=== PATIENT | male | born 1995 | race Caucasian/White ===

== ENCOUNTER 2020-01-06 16:06 | Emergency (ER) | payer SELFPAY ==
[2020-01-06] VITALS (14 sets, daily range): BP systolic 119–181; BP diastolic 72–168; PULSE 56–78; RESP 9–20; TEMP 36.6; O2SAT 98–100
--- NOTE | ~2020-01-06 | XR_ITS ---
EXAMINATION: XR chest 2V EXAM DATE: 01/06/2020 17:52 INDICATION: Shortness of breath, chest tightness. TECHNIQUE: Frontal and lateral projections of the chest obtained and reviewed. There is no prior dragan dy for comparison. FINDINGS: The lungs are clear. There are no pleural effusions. The cardiomediastinal silhouette is within normal limits. There is no pneumothorax suspected. The bones and soft tissues are unremarkab le. IMPRESSION: Normal chest x-ray exam. Reviewed, dictated and finalized at location A. IMPRESSION: Normal chest x-ray exam.
--- NOTE | 2020-01-06 16:13 | ECG_ITS ---
Measurements Intervals [place] Rate: 73 P: 54 VA: 151 QRS: 73 QRSD: 96 T: 10 QT: 376 QTc: 417 Interpretive Statements SINUS RHYTHM NORMAL ECG Electronically Signed On 01-07-2020 6:55:12 CDT by Jaciel Calero D.O.
[2020-01-06 16:41] LABS: Basophils Absolute Auto 0.1 K/mm3 (0.0-0.1); Basophils Percent Auto 1.1 % (0.2-1.2); Eosinophils Absolute Auto 0.1 K/mm3 (0-0.3); Eosinophils Percent Auto 1.5 % (0-4.4); Hematocrit 46.4 % (42.0-52.0); Hemoglobin 16.4 g/dL (14.0-18.0); Immature Granulocyte Absolute 0.02 K/mm3 (0.00-0.031); Immature Granulocyte Percent A 0.2 % (0-0.5); Lymphocytes Absolute Auto 2.29 K/mm3 (0.9-3.2); Lymphocytes Percent Auto 25.8 % (18.3-44.2); Mean Corpuscular HGB Conc 35.3 g/dl (32-36); Mean Corpuscular Hemoglobin 31.4 pg (26-34); Mean Corpuscular Volume 88.7 fl (80-100); Mean Platelet Volume 12.5 fl (7.4-10.4); Monocytes Absolute Auto 0.9 K/mm3 (0.1-0.6); Monocytes Percent Auto 9.8 % (2.6-8.5); Neutrophils Absolute Auto 5.5 K/mm3 (1.3-6.7); Neutrophils Percent Auto 61.6 % (45.5-73.1); Platelet Count Result 178 k/mm3 (150-375); Red Blood Count 5.23 M/mm3 (4.6-6.20); Red Cell Distribution Width 11.9 % (11.5-14.5); White Blood Count 8.9 K/mm3 (4.5-10.0)
--- NOTE | 2020-01-06 16:45 | ED.GENADULT ---
HPI - General Adult General Chief complaint: Shortness of Breath/Dyspnea Stated complaint: SOB, CHEST TIGHTNESS - RIGHT SIDED Time Seen by Provider: 01/06/20 16:20 Source: patient and family Limitations: no limitations History of Present Illness HPI narrative: 24 years old white male, then off work for over 8 months, history of post traumatic stress syndrome and anxiety, presents with right chest tightness, intermittent chest pain, lightheadedness, nausea for the last few weeks, worse over the last 6 days. Patient smokes weed, denied alcohol use. Patient denied any suicidal or homicidal ideation Related Data Allergies Allergy/AdvReac Type Severity Reaction Status Date / Time No Known Allergies Allergy Verified 01/06/20 16:12 Review of Systems Review of Systems: Narrative: CONSTITUTIONAL: Denies fever, chills, or sweats. EYES: Denies visual changes, redness, or discharge. ENT: Denies rhinorrhea, congestion, sore throat, or otalgia. CARDIOVASCULAR: Denies chest pain, palpitations, or edema. RESPIRATORY: Denies cough or dyspnea. GASTROINTESTINAL: Denies abdominal pain, nausea, vomiting, or diarrhea. GENITOURINARY: Denies dysuria or hematuria. SKIN: Denies rash or itching. MUSCULOSKELETAL: Denies back pain, joint pain, or myalgia. NEUROLOGIC: Denies headache, numbness, or weakness. PSYCHIATRIC: Denies anxiety or depression. PMFSH Social History Social History Gender identity (if verbalized by the patient): Male Exam Narrative: Exam Narrative: General appearance: Well-developed, well-nourished Skin: Normal color Head: Normocephalic, nontraumatic Eyes: Clear conjunctiva ENT: Oropharynx normal, ears normal, nose normal Neck: Supple, nontender Chest and respiratory: Airway patent, no respiratory distress, no accessory muscle use Heart: Regular rate/rhythm Abdomen: Soft, nontender, no organomegaly, quiet bowel sounds Vascular: Normal peripheral pulses, normal capillary refill. Musculoskeletal: Normal range of motion, nontender back Neurologic: Alert and oriented ?3, FINANCE CLERK is normal as tested, no gross motor deficit Course Course Emergency Course: Unchanged Vital Signs Vital signs: Vital Signs Temperature 36.6 C 01/06/20 16:10 Pulse Rate 76 01/06/20 16:10 Respiratory Rate 16 01/06/20 16:10 Blood Pressure 138/80 01/06/20 16:10 Pulse Oximetry 99 01/06/20 16:10 Temperature 36.6 C 01/06/20 16:10 Pulse Rate 57 L 01/06/20 17:01 Respiratory Rate 13 01/06/20 17:01 Blood Pressure 133/79 01/06/20 17:01 Pulse Oximetry 98 01/06/20 17:01 Medical Decision Making MDM Narrative Medical decision making narrative: Stress, anxiety is my concern. Patient does not have a job for months. Lives with his mom, history of posttraumatic stress syndrome. My plan to get labs, urine drug screen, chest x-ray. Further plan to follow Differential Diagnosis Differential Diagnosis: Stress, anxiety and drug use Vital Signs Vital Signs: Vital Signs Temperature 36.6 C 01/06/20 16:10 Pulse Rate 76 01/06/20 16:10 Respiratory Rate 16 01/06/20 16:10 Blood Pressure 138/80 01/06/20 16:10 Pulse Oximetry 99 01/06/20 16:10 Temperature 36.6 C 01/06/20 16:10 Pulse Rate 57 L 01/06/20 17:01 Respiratory Rate 13 01/06/20 17:01 Blood Pressure 133/79 01/06/20 17:01 Pulse Oximetry 98 01/06/20 17:01 Lab Data Result diagrams: 01/06/20 16:33 01/06/20 16:33 Labs: Lab Results 01/06/20 01/06/20 01/06/20 Range/Units 16:33 16:33 17:30 WBC 8.9 (4.5-10.0) K/mm3 RBC 5.23 (4.6-6.20) M/mm3 Hgb 16.4 (14.0-18.0) g/dL Hct
[2020-01-06 16:55] LABS: Blood Urea Nitrogen 15 mg/dL (9-20); Calcium 9.6 mg/dL (8.4-10.2); Carbon Dioxide 24 mmol/L (22-30); Chloride 105 mmol/L (98-107); Estimated CRCL calculation 117 ml/min; Estimated Glomerular Filt Rate > 60; Glucose 95 mg/dL (75-110); Sodium 139 mmol/L (137-145)
[2020-01-06 17:44] LABS: Add Urine Microscopic? YES; Appearance Urine Cloudy (Clear); Bacteria Urine Trace /hpf; Bilirubin Urine Negative (Negative); Blood Urine Negative (Negative); Color Urine Yellow (Yellow); Glucose Urine UA Negative (Negative); Ketones Urine 1+ mg/dL (Negative); Leukocyte Esterase Ur Negative LEU/UL (Negative); Mucus Urine Moderate /lpf; Nitrate Urine Negative (Negative); Protein Urine 1+ mg/dL (Negative); WBC Urine 0-3 /hpf
[2020-01-06 17:58] LABS: Specific Grav Ur 1.032 (1.001-1.035)
[2020-01-06 18:41] LABS: Amphetamine Screen Urine Negative (Negative); Barbiturate Screen Urine Negative (Negative); Benzodiazepines Screen Urine Positive (Negative); Cannabinoid Screen Urine Positive (Negative); Cocaine Screen Urine Negative (Negative); Methadone Screen Urine Negative (Negative); Opiate Screen Urine Negative (Negative); Phencyclidine Screen Urine Negative (Negative)
== END 2020-01-06 18:33 | disposition home or self-care (01) ==
PROVIDERS: Emergency Provider Emergency Medicine
DX: F41.9 Anxiety disorder, unspecified (principal)
CPT/HCPCS: 36415; 71046; 80048; 80307; 81001; 85025; 93005; 99284